=== PATIENT | female | born 1965 | race Caucasian/White ===

== ENCOUNTER 2017-09-16 00:08 | Emergency (ER) | payer OTHER ==
[2017-09-16] MEDS ORDERED: HYDROcodone/APAP 10-325MG 1 EACH TAB PO ONE (00:27)
--- NOTE | 2017-09-16 00:48 | ED ---
Lower Extremity Injury HPI - General Chief Complaint: Extremity Injury, Lower Stated Complaint: Ankle Injury Time Seen by Provider: 09/16/17 00:24 Source: patient, RN notes reviewed, old records reviewed Mode of arrival: wheelchair Limitations: no limitations - History of Present Illness Initial Comments: This patient is a 52-year-old male presents emergency department today chief complaint of left ankle and foot pain. She reports that she was standing on a mantle and to replace firewood and she slipped and fell and twisted her ankle. Patient states that she was unable to appear weight over this. She reports that she has some significant pain and swelling over the anterior ankle.Patient denies any recent fever, chills, shortness of breath, chest pain, back pain, abdominal pain, nausea vomiting, numbness or tingling, dysuria or hematuria, constipation or diarrhea, headaches or visual changes, or any other current symptoms - Related Data Previous Rx's Medication Instructions Recorded Acetaminophen-Codeine 300-30mg 1 tab PO Q6H PRN #15 tablet 09/16/17 [Tylenol #3] Ibuprofen [Motrin] 800 mg PO TID #30 tab 09/16/17 Allergies Allergy/AdvReac Type Severity Reaction Status Date / Time No Known Allergies Allergy Verified 09/16/17 00:14 Review of Systems ROS Statement: Those systems with pertinent positive or pertinent negative responses have been documented in the HPI. ROS Other: All systems not noted in ROS Statement are negative. Past Medical History Past Medical History: Hyperlipidemia, Hypertension History of Any Multi-Drug Resistant Organisms: None Reported Past Surgical History: Section, Hysterectomy Additional Past Surgical History / Comment(s): laproscopy. Past Psychological History: Anxiety Smoking Status: Current every day smoker Past Alcohol Use History: Rare Past Drug Use History: None Reported General Exam - General Exam Comments Initial Comments: This is a 52-year-old female. No acute distress. Limitations: no limitations General appearance: alert, in no apparent distress Head exam: Present: atraumatic, normocephalic, normal inspection Eye exam: Present: normal appearance, PERRL, EOMI. Absent: scleral icterus, conjunctival injection, periorbital swelling ENT exam: Present: normal exam, mucous membranes moist Neck exam: Present: normal inspection. Absent: tenderness, meningismus, lymphadenopathy Respiratory exam: Present: normal lung sounds bilaterally. Absent: respiratory distress, wheezes, rales, rhonchi, stridor Cardiovascular Exam: Present: regular rate, normal rhythm, normal heart sounds. Absent: systolic murmur, diastolic murmur, rubs, gallop, clicks GI/Abdominal exam: Present: soft, normal bowel sounds. Absent: distended, tenderness, guarding, rebound, rigid Extremities exam: Present: normal inspection, full ROM, normal capillary refill. Absent: tenderness, pedal edema, joint swelling, calf tenderness Left Knee exam: Present: normal inspection, full ROM Lower Leg exam: Present: normal inspection, full ROM Ankle exam: Present: tenderness, swelling. Absent: normal inspection, full ROM (unable to test ROM due to pain) Foot/Toe exam: Present: normal inspection, full ROM Neurovascular tendon exam: Present: no vascular compromise Gait: observed and normal Back exam: Present: normal inspection Neurological exam: Present: alert, oriented X3, CN II-XII intact Psychiatric exam: Present: normal affect, normal mood Skin exam: Present: warm, dry, intact, normal color. Absent: rash Course Vital Signs 09/16/17 09/16/17 00:09 01:44 Temperature 97.8 F 96.9 F L Pulse Rate 75 74 Respiratory 20 17 Rate Blood Pressure 115/74 110/67 O2 Sat by Pulse 100 99 Oximetry Medical Decision Making - Medical Decision Making his patient is a 52-year-old male presents emergency department today chief complaint of left ankle and foot pain. She reports that she was standing on a mantle and to replace firewood and she slipped and fell and twisted her ankle. Patient does have significant swelling and appears to be deformity of the left ankle and foot. X-rays were obtained and showed no evidence of any fractures or dislocation. Patient informed of the results. Discussed likely a severe sprain. Patient was given a ankle stirrup splint and Delbert wrap. She reports she has crutches at home. We'll discharge impression was anti-inflammatories and pain medicine. Discussed following up with PCP, rest ice and elevate. Discussed [place] [facility] follow-up. She requests a work note from school. All questions were answered and return parameters were discussed. - Radiology Data Radiology results: report reviewed Soft tissue swelling over the lateral malleolus there is mild soft tissue swelling around the ankle joint. No fracture dislocation. Joint spaces are normal. Disposition Clinical Impression: Left ankle pain Disposition: HOME SELF-CARE Condition: Good Instructions: Ankle Sprain (ED) Additional Instructions: Patient advised to follow-up with [facility] [employer] traffic [employer] specialist. Remain in splint. Return to emergency department if any alarming signs or symptoms occur. Prescriptions: Acetaminophen-Codeine 300-30mg [Tylenol #3] 1 tab PO Q6H PRN #15 tablet PRN Reason: Pain Ibuprofen [Motrin] 800 mg PO TID #30 tab Referrals: Tamy Arenas DO [Primary Care Provider] - 1-2 days Yonas Green MD [STAFF PHYSICIAN] - 1-2 days Time of Disposition: 01:19
--- NOTE | 2017-09-16 01:08 | XR ---
EXAMINATION TYPE: XR foot complete LT DATE OF EXAM: 09/16/2017 COMPARISON: NONE HISTORY: Pain TECHNIQUE: 3 views FINDINGS: I see no fracture nor dislocation. Metatarsals are intact. Joint spaces are normal. IMPRESSION: Negative left foot exam.
--- NOTE | 2017-09-16 01:09 | XR ---
EXAMINATION TYPE: XR ankle complete LT DATE OF EXAM: 09/16/2017 COMPARISON: NONE HISTORY: Pain and injury TECHNIQUE: 3 views FINDINGS: There is soft tissue swelling over the lateral malleolus. There is mild soft tissue swellin g around ankle joint. I see no fracture nor dislocation. Joint spaces are fairly normal. IMPRESSION: Soft tissue swelling. No fracture seen.
[2017-09-16 01:45] VITALS: BP 110/67; PULSE 74; RESP 17; TEMP 96.9
== END 2017-09-16 01:45 | disposition home or self-care (01) ==
LOC: EC 00:08
DX: M25.572 Pain in left ankle and joints of left foot (principal); F17.200 Nicotine dependence, unspecified, uncomplicated
CPT/HCPCS: 99284

== ENCOUNTER → 2017-09-24 | Outpatient (CLI) | payer OTHER ==
--- NOTE | 2017-09-24 12:32 | US ---
EXAMINATION TYPE: US venous doppler duplex LE LT DATE OF EXAM: 09/24/2017 12:18 PM COMPARISON: NONE CLINICAL HISTORY: 52-year-old female M25.572 Left Ankle Pain. Pt states left ankle injury, recent le ft calf pain and swelling SIDE PERFORMED: Left TECHNIQUE: The lower extremity deep venous system is examined utilizing real time linear array sonog jordan with graded compression, doppler sonography and color-flow sonography. Findings: VESSELS IMAGED: External Iliac Vein (EIV) Common Femoral Vein Deep Femoral Vein Greater Saphenous Vein * Femoral Vein Popliteal Vein Small Saphenous Vein * Proximal Calf Veins Posterior tibial veins (* superficial vessels) Left Leg: Negative for DVT Results called to Aarti at Dr's office at time of exam IMPRESSION: No evidence for DVT within the left lower extremity.
== END ==
LOC: LABWHC1 11:49
PROVIDERS: ATTEND Orthopaedic Surgery Sports Medicine
DX: M25.572 Pain in left ankle and joints of left foot (principal)

== ENCOUNTER → 2018-02-17 | Outpatient (CLI) | payer OTHER ==
--- NOTE | 2018-02-18 11:34 | MM ---
Reason for exam: screening (asymptomatic). Last mammogram was performed 1 year and 7 months ago. History: Patient is postmenopausal. Taking estrogen for 6 years beginning at age 40. Physical Findings: A clinical breast exam by your physician is recommended on an annual basis and results should be correlated with mammographic findings. MG Screening Mammo w CAD Bilateral CC and MLO view(s) were taken. Prior study comparison: July 09, 2016, bilateral MG screening mammo w CAD. September 27, 2011, [facility] DIGITAL RIGHT MAMMOGRAM w/CAD. The breast tissue is heterogeneously dense. This may lower the sensitivity of mammography. No significant changes when compared with prior studies. ASSESSMENT: Benign, BI-RAD 2 RECOMMENDATION: Routine screening mammogram of both breasts in 1 year.
== END | disposition home or self-care (01) ==
LOC: RADMAMWWP 07:20
PROVIDERS: ATTEND Family Medicine
DX: Z12.31 Encounter for screening mammogram for malignant neoplasm of breast (principal)
CPT/HCPCS: 77067

== ENCOUNTER → 2021-03-12 | Outpatient (CLI) | payer OTHER ==
--- NOTE | 2021-03-13 10:26 | MM ---
Reason for exam: screening (asymptomatic). Last mammogram was performed 3 years and 1 month ago. History: Patient is postmenopausal. Taking estrogen for 6 years beginning at age 40. Physical Findings: A clinical breast exam by your physician is recommended on an annual basis and results should be correlated with mammographic findings. MG Screening Mammo w CAD Bilateral CC and MLO view(s) were taken. Prior study comparison: February 17, 2018, bilateral MG screening mammo w CAD. July 09, 2016, bilateral MG screening mammo w CAD. The breast tissue is heterogeneously dense. This may lower the sensitivity of mammography. Spiculated density inner left CC zone C. ASSESSMENT: Incomplete: need additional imaging evaluation, BI-RAD 0 RECOMMENDATION: Special view mammogram of the left breast. If lesion persists on supplemental views, image directed ultrasound is recommended. [facility] will attempt to contact patient to return for supplemental views and ultrasound if indicated.
== END | disposition home or self-care (01) ==
LOC: RADMAMWWP 16:42
PROVIDERS: ATTEND Family Medicine
DX: Z12.31 Encounter for screening mammogram for malignant neoplasm of breast (principal); Z78.0 Asymptomatic menopausal state
CPT/HCPCS: 77067

== ENCOUNTER → 2021-03-20 | Outpatient (CLI) | payer OTHER ==
--- NOTE | 2021-03-21 07:52 | MM ---
Reason for exam: additional evaluation requested from abnormal screening. Last mammogram was performed less than 1 month ago. History: Patient is postmenopausal. Taking estrogen for 6 years beginning at age 40. Physical Findings: Nurse did not find any significant physical abnormalities on exam. MG Work Up Mamm w CAD LT Spot compression CC and LM view(s) were taken of the left breast. Prior study comparison: March 12, 2021, bilateral MG screening mammo w CAD. February 17, 2018, bilateral MG screening mammo w CAD. July 09, 2016, bilateral MG screening mammo w CAD. The breast tissue is heterogeneously dense. This may lower the sensitivity of mammography. There is no discrete abnormality including area of concern on compression. These results were verbally communicated with the patient and result sheet given to the patient on 03/20/21. ASSESSMENT: Benign, BI-RAD 2 RECOMMENDATION: Return to routine screening mammogram schedule for both breasts.
== END | disposition home or self-care (01) ==
LOC: RADMAMWWP 14:50
PROVIDERS: ATTEND Family Medicine
DX: R92.2 Inconclusive mammogram (principal); Z78.0 Asymptomatic menopausal state; Z79.818 Long term (current) use of other agents affecting estrogen receptors and estrogen levels
CPT/HCPCS: 77065

== ENCOUNTER 2022-06-03 09:32 | Observation (INO) | payer OTHER ==
[2022-06-03] MEDS ORDERED: NITROGLYCERIN SL TABS 0.4 MG TAB SUBLINGUAL STA (10:07)
[2022-06-03] MEDS ORDERED: ASPIRIN 81 MG PO STA (10:07)
[2022-06-03 10:35] LABS: Basophils # (A) 0.1 k/uL (0-0.2); Basophils % (A) 1 %; Eosinophils # (A) 0.2 k/uL (0-0.7); Eosinophils % (A) 2 %; HCT 43.2 % (34.0-46.0); HGB 14.7 gm/dL (11.4-16.0); Lymphocytes # (A) 1.8 k/uL (1.0-4.8); Lymphocytes % (A) 21 %; MCH 31.5 pg (25.0-35.0); MCV 92.7 fL (80.0-100.0); Mean Platelet Volume 8.3; Monocytes # (A) 0.4 k/uL (0-1.0); Monocytes % (A) 5 %; Neutrophils # (A) 5.6 k/uL (1.3-7.7); Neutrophils % (A) 68 %; Platelet Count 261 k/uL (150-450); RBC 4.66 m/uL (3.80-5.40); RDW 11.9 % (11.5-15.5); WBC 8.3 k/uL (3.8-10.6)
--- NOTE | 2022-06-03 10:38 | XR ---
EXAMINATION TYPE: XR chest 2V DATE OF EXAM: 06/03/2022 COMPARISON: NONE TECHNIQUE: PA and lateral views submitted. HISTORY: Chest pain FINDINGS: The lungs are clear and there is no pneumothorax, pleural effusion, or focal pneumonia. Hyperinflat ion. IMPRESSION: 1. No acute process. Correlate for COPD.
[2022-06-03 10:49] LABS: INR 0.9 (<1.2); Partial Thromboplastin Time 28.1 sec (22.0-30.0); Prothrombin Time 10.3 sec (9.0-12.0)
[2022-06-03 10:53] LABS: ALT 18 U/L (4-34); African American GFR (CKD) >90 (>60 ml/min/1.73 sqM); Albumin 4.7 g/dL (3.5-5.0); Anion Gap 8 mmol/L; Blood Urea Nitrogen 13 mg/dL (7-17); Calcium 9.6 mg/dL (8.4-10.2); Carbon Dioxide 25 mmol/L (22-30); Chloride 110 mmol/L (98-107); Glucose 87 mg/dL (74-99); Non-African American GFR(CKD) >90 (>60 ml/min/1.73 sqM); Sodium 143 mmol/L (137-145); Total Bilirubin 0.5 mg/dL (0.2-1.3); Total Protein 7.5 g/dL (6.3-8.2)
[2022-06-03 11:19] LABS: AST 27 U/L (14-36); Alkaline Phosphatase 114 U/L (38-126); Potassium 3.9 mmol/L (3.5-5.1)
--- NOTE | 2022-06-03 11:52 | ED ---
Chest Pain HPI - General Chief Complaint: Chest Pain Stated Complaint: Chest pain, hypertension Time Seen by Provider: 06/03/22 09:53 Source: patient, RN notes reviewed Mode of arrival: ambulatory Limitations: no limitations - History of Present Illness Initial Comments: This a 57-year-old female presents emergency Department chief complaint of chest pain, syncope, hypertension. Patient states she has not follow-up since yesterday stated that she has syncopal episode, blood pressure has been severely elevated is abnormal for patient. Patient is on medication states that she's been taking them. Patient states she started to develop and chest pain R-wave the hospital today. Patient states that she has no other cardiac history. Patient states she has pressure, sharp pain in her chest. Patient does state that it's radiates to her left side of her neck. - Related Data Home Medications Medication Instructions Recorded Confirmed Atorvastatin [Lipitor] 10 mg PO DAILY@1200 06/03/22 06/03/22 Biotin 5 mg PO DAILY@1200 06/03/22 06/03/22 Citalopram Hydrobromide [CeleXA] 20 mg PO DAILY@1200 06/03/22 06/03/22 Levothyroxine Sodium [Synthroid] 88 mcg PO DAILY@1200 06/03/22 06/03/22 lisinopriL [Zestril] 10 mg PO DAILY@1200 06/03/22 06/03/22 Allergies Allergy/AdvReac Type Severity Reaction Status Date / Time No Known Allergies Allergy Verified 06/03/22 10:48 Review of Systems ROS Statement: Those systems with pertinent positive or pertinent negative responses have been documented in the HPI. ROS Other: All systems not noted in ROS Statement are negative. EKG Findings - EKG Comments: EKG Findings:: EKG performed at time: 12 interpreted by me sinus rhythm, rate of 60 HI interval 135 QRS 98 QT/QTC 409/49 - EKG Results: EKG: interpreted by WENDYD Past Medical History Past Medical History: Hyperlipidemia, Hypertension History of Any Multi-Drug Resistant Organisms: None Reported Past Surgical History: Section, Hysterectomy Additional Past Surgical History / Comment(s): laproscopy. Past Psychological History: Anxiety Smoking Status: Current every day smoker Past Alcohol Use History: Rare Past Drug Use History: None Reported General Exam Limitations: no limitations Course Vital Signs 06/03/22 06/03/22 06/03/22 09:39 10:22 10:30 Temperature 98 F Pulse Rate 81 62 68 Respiratory 20 16 15 Rate Blood Pressure 162/101 172/105 172/105 O2 Sat by Pulse 98 98 98 Oximetry 06/03/22 06/03/22 06/03/22 11:00 11:10 11:30 Temperature Pulse Rate 65 67 68 Respiratory 16 151 H 16 Rate Blood Pressure 136/90 140/88 132/89 O2 Sat by Pulse 99 99 98 Oximetry Chest Pain MDM - MDM 57-year-old presented for abdominal hypertension syncope, chest pain. No shortness negative patient be admitted for cardiac rule out including echocardiogram, cardiology evaluation. Case discussed with Dr. Gonzalez Disposition Clinical Impression: Chest pain, Syncope, Hypertension Disposition: ADMITTED IP TO THIS HOSP Condition: Fair Referrals: Tamy Arenas DO [Primary Care Provider] - 1-2 days Time of Disposition: 11:40
[2022-06-03] MEDS ORDERED: NITROGLYCERIN SL TABS 0.4 MG TAB SUBLINGUAL PRN (12:14)
--- NOTE | 2022-06-03 13:25 | P.HPIM ---
History of Present Illness H&P Date: 06/03/22 History of Presenting Illness: Patient is a very pleasant 57-year-old female with a past medical history of hypertension, hyperlipidemia, nicotine dependence and hypothyroidism. She presented to the emergency department with a chief complaint of chest pain and hypertension. Patient reports this all began on Friday when she had a syncopal episode. Patient reports that she was bent over washing her hair in the bathtub and became very lightheaded and dizzy so she went to sit down on the couch and began to feel slightly nauseous and upon standing up she reports experiencing a syncopal episode. Patient reports she was only out momentarily and upon awakening she noticed that her blood pressure had been quite elevated. She reports blood pressures have been elevated 180's systolic and 110's diastolic since this event. She denies having any headache, changes in vision or hearing, palpitations, shortness of breath, or any other complaints. She reports at home this morning her blood pressure was very elevated at 187/113 so she called her home from work to bring her to the emergency department for evaluation. She stated that while driving to the emergency department this is when she began to develop chest pain/pressure to her left anterior chest. Patient states this pain was sudden onset and had a difficult time describing with the exception stating remained in left anterior chest, described as a sharp pressure, and denied radiation of this pain. Chest x-ray negative for acute cardiopulmonary process, correlating for COPD. CBC, coags, and CMP were unremarkable. D-dimer negative at 0.38 and troponin also negative at less than 0.012. EKG showing sinus mechanism with no noted T-wave or ST abnormalities showing no signs of acute ischemia. Review of systems: Pertinent positives and negatives as discussed in HPI, a complete review of systems was performed and all other systems are negative. Physical exam: Vital signs reviewed and stable. General: Nontoxic, no distress and appears stated age. Derm: Skin warm and dry, normal coloration for ethnicity. Head: Atraumatic, normocephalic and symmetric. Eyes: EOMs intact, no lid lag, and anicteric sclera Mouth: no lip lesions, mucus membranes moist Cardiovascular: regular rate and rhythm with normal S1S2, no murmur, positive posterior tibial pulses bilaterally, and cap refill < 2 seconds. Lungs: Respirations even, regular, and unlabored on room air. Lungs CTA bilaterally, no rhonchi, no rales, no wheezing, and no accessory muscle usage. Abdominal: soft, nontender to palpation, no guarding, no appreciable organomegaly Ext: ROM intact. No gross muscle atrophy, no edema, no contractures Neuro: Speech clear, face symmetrical and CN II-XII grossly intact with no noted focal neuro deficits Psych: Alert and oriented to person, place, time, and situation. Appropriate and pleasant affect. Assessment and Plan of Care: Chest pain, rule out acute coronary event Hypertensive urgency Hyperlipidemia -Cardiology consult, appreciate further recommendations -Telemetry monitoring -Trend troponins -Cardiac diet, NPO at midnight -Aspirin, atorvastatin, and lisinopril. Patient also started on amlodipine for treatment of hypertensive urgency. -Lipid profile with a.m. labs. -Echocardiogram Hypothyroidism -Continue daily medication regimen with levothyroxine. Nicotine dependence -Recommend smoking cessation. -Nicotine patch. The patient is admitted with an anticipated less than 2 midnight stay for evaluation of chest pain CODE STATUS: Full code DVT prophylaxis: Heparin Discussed with: Patient and RN and patient's Anticipated discharge date: 1-[address]: home A total of 46 minutes was spent on the care of this complex patient more than 50% of the time was spent in counseling and care coordination. Attending Note: Anthony Worley NP rendered care for this patient independently, reviewed the findings and plan as documented in the note above. I did not physically speak with or examine the patient on this date. Past Medical History Past Medical History: Hyperlipidemia, Hypertension History of Any Multi-Drug Resistant Organisms: None Reported Past Surgical History: Section, Hysterectomy Additional Past Surgical History / Comment(s): laproscopy. Past Psychological History: Anxiety Smoking Status: Current every day smoker Past Alcohol Use History: Rare Past Drug Use History: None Reported Medications and Allergies Home Medications Medication Instructions Recorded Confirmed Type Biotin 5 mg PO DAILY@119906/03/22 06/03/22 History Citalopram Hydrobromide [CeleXA] 20 mg PO DAILY@119906/03/22 06/03/22 History Levothyroxine Sodium [Synthroid] 88 mcg PO DAILY@119906/03/22 06/03/22 History lisinopriL [Zestril] 10 mg PO DAILY@119906/03/22 06/03/22 History Atorvastatin [Lipitor] 20 mg PO DAILY@1200 30 Days #60 tab 06/04/22 Rx amLODIPine [Norvasc] 5 mg PO DAILY 30 Days #30 tab 06/04/22 Rx Allergies Allergy/AdvReac Type Severity Reaction Status Date / Time No Known Allergies Allergy Verified 06/03/22 10:48 Physical Exam Vitals: Vital Signs Temp Pulse Resp BP Pulse Ox 06/03/22 11:30 68 16 132/89 98 06/03/22 11:10 67 151 H 140/88 99 06/03/22 11:00 65 16 136/90 99 06/03/22 10:30 68 15 172/105 98 06/03/22 10:22 62 16 172/105 98 06/03/22 09:39 98 F 81 20 162/101 98 Intake and Output 06/02/22 06/03/22 06/03/22 22:59 06:59 14:59 Other: Weight 78.018 kg Results CBC & Chem 7: 06/03/22 10:19 06/03/22 10:19 Labs: Abnormal Lab Results - Last 24 Hours (Table) 06/03/22 Range/Units 10:19 Chloride 110 H (98-107) mmol/L
[2022-06-03] MEDS: amLODIPine 5 MG TAB PO SCH (14:49)
[2022-06-03] MEDS: NICOTINE 21MG/24HR PATCH TRANSDERM SCH (14:50)
[2022-06-03] MEDS: HEPARIN SODIUM,PORCINE/PF 5,000 UNIT/0.5 ML SYRINGE SQ SCH (16:20)
[2022-06-04] MEDS: HEPARIN SODIUM,PORCINE/PF 5,000 UNIT/0.5 ML SYRINGE SQ SCH ×2 (00:14→09:11)
--- NOTE | 2022-06-04 08:01 | P.CRDCN ---
History of Present Illness Consult date: 06/04/22 History of present illness: History of Present Illness: The patient is a 57-year-old female with known history of hypertension, history of vaping who presents with a syncopal episode and chest discomfort. On Friday she had symptoms of nausea and was not feeling well, after washing her hair she felt dizzy, sat down and when she stood up she had a brief syncopal episode without any associated palpitations or chest discomfort. She follow her blood pressure Friday and it was elevated and continue to be elevated yesterday and because of that came into the emergency room. In route to the emergency room she had chest discomfort, tingling-like, not associated with any other symptoms that lasted for a few hours. She had no prior exertional chest comfort. She is active but does not exercise on a regular basis. She has no PND, orthopnea or peripheral edema. She has no history of malignant arrhythmia or prior documented cardiac disease. In the emergency room her EKG showed sinus mechanism and she had no evidence of acute ST segment changes. Her troponin w ere normal. Her coronary risk factors are positive for hypertension, hyperlipidemia and smoking. Medications: Synthroid, Celexa, Lipitor 10 mg daily, Zestril 10 mg daily Review of Systems: Respiratory: No history of asthma, bronchitis or recent cough. GI: No nausea or vomiting . No history of peptic ulcer disease. No recent GI bleed. : No hematuria or dysuria. Nervous System: No stroke or seizure. Physical Examination: 57-year-old female, alert and oriented no apparent distress,Blood pressure 137/80, Heart rate 60 Head: Normocephalic. Eyes: Sclerae nonicteric. Neck: Good carotid upstroke, no bruit, no jugular venous distention. Lungs: Clear to auscultation. Heart: Regular rate and rhythm, S1-S2, no S3, no rub. No murmur. Abdomen: Soft nontender, positive bowel sounds no organomegaly. Extremities: No edema, intact distal pulses. Labs: Troponin less than 0.012. BUN 13, creatinine 0.73. Potassium 3.9. Chest x-ray with no acute infiltrate EKG: Sinus mechanism with no acute ST segment changes Impression: 1. Chest discomfort, probably noncardiac in a patient with multiple risk factors 2. Syncopal episode most likely orthostatic hypotension exacerbated by the abdominal symptoms 3. History of hypertension 4. History of hyperlipidemia 5. Tobacco use Plan: 1. Obtain an echocardiogram with Doppler 2. Stress echocardiogram 3. Follow blood pressure 4. Depending on her progress further recommendations will be made 5. Thank you for this consult we will follow with you. Past Medical History Past Medical History: Hyperlipidemia, Hypertension History of Any Multi-Drug Resistant Organisms: None Reported Past Surgical History: Section, Hysterectomy Additional Past Surgical History / Comment(s): laproscopy. Past Psychological History: Anxiety Smoking Status: Current every day smoker Past Alcohol Use History: Rare Past Drug Use History: None Reported Medications and Allergies Home Medications Medication Instructions Recorded Confirmed Type Atorvastatin [Lipitor] 10 mg PO DAILY@1200 06/03/22 06/03/22 History Biotin 5 mg PO DAILY@1200 06/03/22 06/03/22 History Citalopram Hydrobromide [CeleXA] 20 mg PO DAILY@1200 06/03/22 06/03/22 History Levothyroxine Sodium [Synthroid] 88 mcg PO DAILY@1200 06/03/22 06/03/22 History lisinopriL [Zestril] 10 mg PO DAILY@1200 06/03/22 06/03/22 History Allergies Allergy/AdvReac Type Severity Reaction Status Date / Time No Known Allergies Allergy Verified 06/03/22 10:48 Physical Exam Vitals: Vital Signs Temp Pulse Pulse Resp BP BP BP 06/04/22 06:43 97.2 F L 61 16 137/81 06/04/22 02:56 97.9 F 57 L 18 137/86 06/03/22 20:51 97.6 F 69 17 111/64 06/03/22 18:21 98.4 F 70 15 136/82 06/03/22 17:44 94 16 131/74 06/03/22 16:10 66 16 149/94 06/03/22 15:00 16 141/85 06/03/22 14:45 65 16 140/94 06/03/22 13:15 65 16 145/101 06/03/22 12:00 124/83 06/03/22 11:30 68 16 132/89 06/03/22 11:10 67 15 140/88 06/03/22 11:00 65 16 136/90 06/03/22 10:30 68 15 172/105 06/03/22 10:22 62 16 172/105 06/03/22 09:39 98 F 81 20 162/101 Pulse Ox 06/04/22 06:43 100 06/04/22 02:56 96 06/03/22 20:51 99 06/03/22 18:21 95 06/03/22 17:44 98 06/03/22 16:10 94 L 06/03/22 15:00 06/03/22 14:45 06/03/22 13:15 98 06/03/22 12:00 06/03/22 11:30 98 06/03/22 11:10 99 06/03/22 11:00 99 06/03/22 10:30 98 06/03/22 10:22 98 06/03/22 09:39 98 Intake and Output 06/03/22 06/04/22 06/04/22 22:59 06:59 14:59 Other: Voiding Method Toilet # Voids 2 2 Weight 78.018 kg Results 06/03/22 10:19 06/03/22 10:19 Cardiac Enzymes 06/03/22 06/03/22 06/03/22 Range/Units 10:19 10:19 14:25 AST 27 (14-36) U/L Troponin I <0.012 <0.012 (0.000-0.034) ng/mL 06/03/22 Range/Units 17:27 AST (14-36) U/L Troponin I <0.012 (0.000-0.034) ng/mL Coagulation 06/03/22 Range/Units 10:19 PT 10.3 (9.0-12.0) sec APTT 28.1 (22.0-30.0) sec CBC 06/03/22 Range/Units 10:19 WBC 8.3 (3.8-10.6) k/uL RBC 4.66 (3.80-5.40) m/uL Hgb 14.7 (11.4-16.0) gm/dL Hct 43.2 (34.0-46.0) % Plt Count 261 (150-450) k/uL Comprehensive Metabolic Panel 06/03/22 Range/Units 10:19 Sodium 143 (137-145) mmol/L Potassium 3.9 (3.5-5.1) mmol/L Chloride 110 H (98-107) mmol/L Carbon Dioxide 25 (22-30) mmol/L BUN 13 (7-17) mg/dL Creatinine 0.73 (0.52-1.04) mg/dL Glucose 87 (74-99) mg/dL Calcium 9.6 (8.4-10.2) mg/dL AST 27 (14-36) U/L ALT 18 (4-34) U/L Alkaline Phosphatase 114 (38-126) U/L Total Protein 7.5 (6.3-8.2) g/dL Albumin 4.7 (3.5-5.0) g/dL Current Medications Generic Name Dose Route Start Last Admin Trade Name Freq PRN Reason Stop Dose Admin Amlodipine Besylate 5 mg 06/03/22 14:30 06/03/22 14:49 Amlodipine 5 Mg Tab PO 5 mg DAILY [facility] Administration Aspirin 325 mg 06/04/22 09:00 Aspirin 325 Mg Tab PO DAILY [facility] Atorvastatin Calcium 10 mg 06/04/22 12:00 Atorvastatin 10 Mg Tab PO DAILY@1200 [facility] Citalopram Hydrobromide 20 mg 06/04/22 12:00 Citalopram Hydrobromide 20 Mg Tab PO DAILY@1200 [facility] Heparin Sodium (Porcine) 5,000 unit 06/03/22 16:00 06/04/22 00:14 Heparin Sodium,Porcine/Pf 5,000 Unit/0.5 Ml Syringe SQ Not Given Q8HR [facility] Levothyroxine Sodium 88 mcg 06/04/22 12:00 Levothyroxine 88 Mcg Tab PO DAILY@1200 [facility] Lisinopril 10 mg 06/04/22 12:00 Lisinopril 10 Mg Tab PO DAILY@1200 [facility] Nicotine 1 patch 06/03/22 14:45 06/03/22 14:50 Nicotine 21mg/24hr Patch TRANSDERM Not Given DAILY [facility] Nitroglycerin 0.4 mg 06/03/22 12:14 Nitroglycerin Sl Tabs 0.4 Mg Tab SUBLINGUAL Q5M PRN Chest Pain Intake and Output 06/03/22 06/04/22 06/04/22 22:59 06:59 14:59 Other: Voiding Method Toilet # Voids 2 2 Weight 78.018 kg 06/03/22 10:19 06/03/22 10:19
[2022-06-04] MEDS ORDERED: ASPIRIN 81 MG PO SCH (09:00)
[2022-06-04] MEDS ORDERED: ASPIRIN 325 MG TAB PO SCH (09:00)
[2022-06-04] MEDS: amLODIPine 5 MG TAB PO SCH (09:10)
[2022-06-04] MEDS: NICOTINE 21MG/24HR PATCH TRANSDERM SCH (09:11)
[2022-06-04] MEDS ORDERED: diphenhydrAMINE 50 MG/ML 1 ML VIAL IVP STA (09:23)
[2022-06-04] MEDS ORDERED: PROCHLORPERAZINE INJ 10 MG/2 ML VIAL IVP STA (09:23)
[2022-06-04] MEDS ORDERED: KETOROLAC 15 MG/ML 1 ML VIAL IVP STA (09:23)
[2022-06-04 09:55] LABS: Chol/HDL Ratio 2.97 Ratio; LDL Cholesterol,Calculated 133.1 mg/dL (0.0-131.0)
[2022-06-04] MEDS ORDERED: CITALOPRAM HYDROBROMIDE 20 MG TAB PO SCH (12:00)
[2022-06-04] MEDS ORDERED: LEVOTHYROXINE 88 MCG TAB PO SCH (12:00)
[2022-06-04] MEDS ORDERED: ATORVASTATIN 10 MG TAB PO SCH (12:00)
[2022-06-04] MEDS ORDERED: NON FORMULARY DRUG (Biotin [Biotin] 5 MG Capsule) PO SCH (12:00)
[2022-06-04] MEDS ORDERED: lisinopriL 10 MG TAB PO SCH (12:00)
--- NOTE | 2022-06-04 12:32 | CA ---
Transthoracic Echo Report Name: Luda Christianson Age: 57 Gender: F : 1965 Exam Date: 06/04/2022 08:00 Exam Location: [place] [facility] Ht (in): 64 Wt (lb): 172 Ordering Physician: Rex Soni Attending/Referring Phys: [id number], Zachariah Candy Butcher Janeen Vogt, [facility] Procedure CPT: Indications: Chest Pain Cardiac Hx: Technical Quality: Good Contrast 1: Total Dose (mL): Contrast 2: Total Dose (mL): MEASUREMENTS (Male / Female) Normal Values 2D ECHO LV Diastolic Diameter PLAX 4.9 cm 4.2 - 5.9 / 3.9 - 5.3 cm LV Systolic Diameter PLAX 3.4 cm IVS Diastolic Thickness 1.1 cm 0.6 - 1.0 / 0.6 - 0.9 cm LVPW Diastolic Thickness 1.1 cm 0.6 - 1.0 / 0.6 - 0.9 cm LV Relative Wall Thickness 0.5 RV Internal Dim ED PLAX 3.0 cm LA Systolic Diameter LX 3.4 cm 3.0 - 4.0 / 2.7 - 3.8 cm LA Volume 50.3 cm??? 18 - 58 / 22 - 52 cm??? M-MODE Aortic Root Diameter MM 3.1 cm MV E Point Septal Separation 0.5 cm AV Cusp Separation MM 2.1 cm DOPPLER AV Peak Velocity 151.1 cm/s AV Peak Gradient 9.1 mmHg MV Area PHT 2.4 cm??? Mitral E Point Velocity 64.8 cm/s Mitral A Point Velocity 64.8 cm/s Mitral E to A Ratio 1.0 MV Deceleration Time 311.7 ms MV E' Velocity 10.5 cm/s Mitral E to MV E' Ratio 6.2 TR Peak Velocity 211.4 cm/s TR Peak Gradient 17.9 mmHg Right Ventricular Systolic Press 22.0 mmHg FINDINGS Left Ventricle Left ventricular ejection fraction is estimated at55-60%. Left ventricular cavity size normal. Right Ventricle Normal right ventricular size and function. Right ventricular systolic pressure within normal limits. Right Atrium Normal right atrial size. Left Atrium Normal left atrial size. No evidence for an atrial septal defect. Mitral Valve Mild mitral regurgitation. No evidence for mitral valve prolapse. No mitral stenosis. Aortic Valve Trileaflet aortic valve. No aortic valve stenosis or regurgitation. Tricuspid Valve Structurally normal tricuspid valve. No tricuspid prolapse. No tricuspid stenosis. Mild tricuspid regurgitation Pulmonic Valve Structurally normal pulmonic valve. No pulmonic regurgitation. Pericardium Normal pericardium. No pericardial effusion. Aorta Normal size aortic root and proximal ascending aorta. CONCLUSIONS 1. Normal ventricle size and systolic function 2. Mild mitral and tricuspid regurgitation Previewed by: Dr. Norma Braga MD (Electronically Signed) Final Date: 04 June 2022 12:31
--- NOTE | 2022-06-04 12:42 | CA ---
Stress Echo Report Luda Christianson Age: 57 Gender: F : 1965 Exam Date: 06/04/2022 09:38 Exam Location: [facility] Ht (in): 64 Wt (lb): 172 Ordering Physician: Norma Braga MD ([id number]) Referring Physician: LAYA,, Textile Converter: Manisha Salmon RDCS Technologist Procedure CPT: Indication: Chest Pain ICD-9 Codes: Rhythm: Patient History: Cardiac Medications: Medications in past 24 hours: Contrast: Stress Results Protocol: Gaurav Total dose(mL): Exercise Duration (min:sec): 7.[address] Depression (mm): 0.5 Angina Score: 0 Godfrey Score: -2.5 METS: 8.9 Resting HR: 76 Resting BP: 126 / 83 Peak HR: 153 Peak BP: 178 / 83 Max Predicted HR: 165 93 % Max Predicted HR Target HR: 140 Double Product: [id number] Stress Summary: Asymptomatic BP Response: Normal Reason for Termination: General/leg fatigue Cardiac Symptoms: Fatigue ECG Analysis Resting ECG: Minor resting ST/T wave changes Stress ECG: Borderline ST depression - inferior leads Arrhythmia: Occasional PVCs Echo Analysis Resting Echo: Normal resting echocardiogram. Peak Echo Analysis: No wall motion changes with stress. MEASUREMENTS (Male/Female) Normal Values CONCLUSIONS 1. Average exercise tolerance 2. Borderline positive electrocardiographic stress testing 3. Normal stress echocardiogram with no evidence of stress induced ischemia. Dr. Norma Braga MD (Electronically Signed) Final Date: 04 June 2022 12:41
[2022-06-04 13:25] VITALS: BP 145/79; PULSE 71; RESP 14; TEMP 98.2
--- NOTE | 2022-06-04 15:09 | P.DS ---
Providers Date of admission: 06/03/22 12:30 Expected date of discharge: 06/04/22 Attending physician: Rajan Gonzalez MD Consults: 06/03/22 12:14 Consult Physician Urgent Consulting Provider: Aaron Swenson Consult Reason/Comments: chest pain Do you want consulting provider notified?: Yes Primary care physician: Tamy Arenas Hospital Course: Discharge Diagnosis: Chest pain, acute coronary event ruled out Hypertensive urgency, blood pressure is stable. Patient being discharged home on amlodipine in addition to daily lisinopril. Hyperlipidemia. Atorvastatin increased to 20 mg daily. Recommend continuing heart healthy and carb consistent diet. Hypothyroidism. Continue daily medication regimen with levothyroxine. Nicotine dependence, recommend stopping vaping. Hospital Course: Patient is a very pleasant 57-year-old female with a past medical history of hypertension, hyperlipidemia, nicotine dependence and hypothyroidism. She presented to the emergency department with a chief complaint of chest pain and hypertension. Patient reports this all began on Friday when she had a syncopal episode. Patient reports that she was bent over washing her hair in the bathtub and became very lightheaded and dizzy so she went to sit down on the couch and began to feel slightly nauseous and upon standing up she reports experiencing a syncopal episode. Patient reports she was only out momentarily and upon awakening she noticed that her blood pressure had been quite elevated. She reports blood pressures have been elevated 180's systolic and 110's diastolic since this event. She denies having any headache, changes in vision or hearing, palpitations, shortness of breath, or any other complaints. She reports at home this morning her blood pressure was very elevated at 187/113 so she called her home from work to bring her to the emergency department for evaluation. She stated that while driving to the emergency department this is when she began to develop chest pain/pressure to her left anterior chest. Patient states this pain was sudden onset and had a difficult time describing with the exception stating remained in left anterior chest, described as a sharp pressure, and denied radiation of this pain. Chest x-ray negative for acute cardiopulmonary process, correlating for COPD. CBC, coags, and CMP were unremarkable. D-dimer negative at 0.38 and troponin also negative at less than 0.012. EKG showing sinus mechanism with no noted T-wave or ST abnormalities showing no signs of acute ischemia. Patient was admitted under our services with consultation to cardiology. Troponins were trended all negative at less than 0.0123 draws. patient was started on amlodipine 5 mg daily in addition to her daily lisinopril. Blood pressures much better controlled with morning blood pressure 136/85, Echocardiogram revealing normal EF of 55-60% with mild mitral and tricuspid regurgitation. lipid profisulting revealing an elevated cholesterol of 231 and elevated LDL of 133.1. Atorvastatin increased to 20 mg daily. patient was evaluated by cardiology and taken for Stress echo which reportedly revealed average exercise tolerance with borderline positive electrographic stress testing and normal stress echocardiogram with no evidence of stress-induced ischemia. cardiology recommending no further inpatient testing at this time and recommending follow-up in their office in 1-2 weeks. Patient has been free from any reports of chest pain at this time and is medically stable for discharge home. Physical exam: Patient seen and examined at bedside and reports free from any pain or discomfort. Vital signs reviewed and stable. General: Nontoxic, no distress and appears stated age. Derm: Skin warm and dry, normal coloration for ethnicity. Head: Atraumatic, normocephalic and symmetric. Eyes: EOMs intact, no lid lag, and anicteric sclera Mouth: no lip lesions, mucus membranes moist Cardiovascular: regular rate and rhythm with normal S1S2, no murmur, positive posterior tibial pulses bilaterally, and cap refill < 2 seconds. Lungs: Respirations even, regular, and unlabored on room air. Lungs CTA bilaterally, no rhonchi, no rales, no wheezing, and no accessory muscle usage. Abdominal: soft, nontender to palpation, no guarding, no appreciable organomegaly Ext: ROM intact. No gross muscle atrophy, no edema, no contractures Neuro: Speech clear, face symmetrical and CN II-XII grossly intact with no noted focal neuro deficits Psych: Alert and oriented to person, place, time, and situation. Appropriate and pleasant affect. A total of 31 minutes of time were spent preparing this complex discharge summary. Pt was discharged on 06/04/22 at 2:59 PM. Assessment: Attending note Anthony Worley NP rendered care for this patient independently, reviewed the findings and plan as documented in the note above. I did not physically speak with our examined the patient on this date. Patient Condition at Discharge: Stable Plan - Discharge Summary Discharge Rx Participant: No New Discharge Prescriptions: New amLODIPine [Norvasc] 5 mg PO DAILY 30 Days #30 tab Continue lisinopriL [Zestril] 10 mg PO DAILY@1200 Biotin 5 mg PO DAILY@1200 Levothyroxine Sodium [Synthroid] 88 mcg PO DAILY@1200 Citalopram Hydrobromide [CeleXA] 20 mg PO DAILY@1200 Changed Atorvastatin [Lipitor] 20 mg PO DAILY@1200 30 Days #60 tab Discharge Medication List Biotin 5 mg PO DAILY@1200 06/03/22 [History] Citalopram Hydrobromide [CeleXA] 20 mg PO DAILY@1200 06/03/22 [History] Levothyroxine Sodium [Synthroid] 88 mcg PO DAILY@1200 06/03/22 [History] lisinopriL [Zestril] 10 mg PO DAILY@1200 06/03/22 [History] Atorvastatin [Lipitor] 20 mg PO DAILY@1200 30 Days #60 tab 06/04/22 [Rx] amLODIPine [Norvasc] 5 mg PO DAILY 30 Days #30 tab 06/04/22 [Rx] Follow up Appointment(s)/Referral(s): Norma Braga MD [STAFF PHYSICIAN] - 1 Week (office will call to set up appointment) Tamy Arenas DO [Primary Care Provider] - 1-2 days Patient Instructions/Handouts: Chest Pain (DC), Heart Healthy Diet (DC), Hypertension (DC) Activity/Diet/Wound Care/Special Instructions: Activity: As tolerated. Take breaks as needed. Diet: Heart healthy and carb consistent diet. Avoid salts, or foods with hidden salts such as canned or boxed foods and frozen dinners. Extra salt makes your heart work harder and traps the fluid in your body for longer. Special Instructions: Take all of your medications as directed and remember to keep all of your doctor's appointments and follow-up as needed. Thank you for allowing us to participate in your care, it was truly a pleasure having you for our patient!!! Discharge Disposition: HOME SELF-CARE
== END 2022-06-04 15:33 | disposition home or self-care (01) ==
LOC: EC 09:32 → 6NMEDSUR 12:30
PROVIDERS: ADMIT Student in an Organized Health Care Education/Training Program; ATTEND Student in an Organized Health Care Education/Training Program
DX: R07.89 Other chest pain (principal); R55 Syncope and collapse; I16.0 Hypertensive urgency; I10 Essential (primary) hypertension; F41.9 Anxiety disorder, unspecified; E78.5 Hyperlipidemia, unspecified; E03.9 Hypothyroidism, unspecified; F17.200 Nicotine dependence, unspecified, uncomplicated; Z79.890 Hormone replacement therapy; Z79.899 Other long term (current) drug therapy
CPT/HCPCS: 96372 ×2; 96374; 96375; 99285; 36415; 94760; 93005; 93306; 93351; 85379; 80061; 80053; 83735; 84484; 85025; 85610; 85730; 71046; G0378 ×2; S4990; J1200; J0780; J1885; J1644 ×2